=== PATIENT | male | born 1965 | race Two or more races ===

== ENCOUNTER 2019-07-16 17:29 | Emergency (ER) | payer OTHER ==
[2019-07-16 17:41] VITALS: BP 148/84; PULSE 63; RESP 16; TEMP 98.2
[2019-07-16] MEDS ORDERED: LIDOCAINE 5% PATCH TOPICAL STA (18:09)
[2019-07-16] MEDS ORDERED: ACETAMINOPHEN TAB 500 MG TAB PO STA (18:09)
--- NOTE | 2019-07-16 18:38 | ED ---
General Adult HPI - General Chief complaint: Fall Stated complaint: fall/rib pain-[facility] Time Seen by Provider: 07/16/19 17:46 Source: patient, RN notes reviewed Mode of arrival: ambulatory Limitations: no limitations - History of Present Illness Initial comments: 53-year-old male presents to the emergency department for a chief complaint of fall. Patient was walking on a sidewalk at his job when his foot slipped off the edge of the sidewalk and he fell onto his left side. Patient states he is having left-sided rib pain. States he felt fine at first however this worsen and now hurts to breathe and cough. Patient did not hit his head. Denies blood thinner use. Denies any neck pain. He denies any back pain. Patient has no other complaints at this time including shortness of breath, chest pain, abdominal pain, nausea or vomiting, headache, or visual changes. - Related Data Previous Rx's Medication Instructions Recorded Lidocaine 5% Patch [Lidoderm 5% 1 patch TOPICAL DAILY PRN 5 Days 07/16/19 Patch] #5 patch Allergies Allergy/AdvReac Type Severity Reaction Status Date / Time No Known Allergies Allergy Verified 07/16/19 17:41 Review of Systems ROS Statement: Those systems with pertinent positive or pertinent negative responses have been documented in the HPI. ROS Other: All systems not noted in ROS Statement are negative. Past Medical History Additional Past Medical History / Comment(s): arthritis. History of Any Multi-Drug Resistant Organisms: None Reported Past Surgical History: No Surgical Hx Reported Past Psychological History: No Psychological Hx Reported Smoking Status: Never smoker Past Alcohol Use History: None Reported Past Drug Use History: None Reported General Exam Limitations: no limitations General appearance: alert, in no apparent distress Head exam: Present: atraumatic, normocephalic, normal inspection Eye exam: Present: normal appearance, PERRL, EOMI. Absent: scleral icterus, conjunctival injection, periorbital swelling ENT exam: Present: normal exam, mucous membranes moist Neck exam: Present: normal inspection, full ROM. Absent: tenderness, meningismus, lymphadenopathy Respiratory exam: Present: normal lung sounds bilaterally, chest wall tenderness (patient has left sided lateral rib tenderness without contusion or step off). Absent: respiratory distress, wheezes, rales, rhonchi, stridor Cardiovascular Exam: Present: regular rate, normal rhythm, normal heart sounds. Absent: systolic murmur, diastolic murmur, rubs, gallop, clicks GI/Abdominal exam: Present: soft, normal bowel sounds. Absent: distended, tenderness (no tenderness of the abdomen, no left upper quadrant tenderness), guarding, rebound, rigid Back exam: Absent: vertebral tenderness (no thoracic or lumbar spine tenderness) Neurological exam: Present: alert Psychiatric exam: Present: normal affect, normal mood Course Vital Signs 07/16/19 17:38 Temperature 98.2 F Pulse Rate 63 Respiratory 16 Rate Blood Pressure 148/84 O2 Sat by Pulse 97 Oximetry Medical Decision Making - Medical Decision Making 53-year-old male presents to the emergency department for a chief complaint of left rib pain. Patient fell from a standing position onto a flat surface. Patient states pain is worse when he coughs or takes a deep breath. On examination patient has tenderness of the left side of the lateral ribs. He does not have any abdominal tenderness whatsoever. No spinal tenderness. I do not expect intra-abdominal pathology. X-ray was obtained Which shows no active cardiopulmonary disease. No rib fracture seen. Patient likely has occult rib fracture or rib contusion. Patient was treated for pain management but did not wish any narcotics as he is driving home. Patient will follow up with primary care in 1-2 days. I discussed strict return parameters with patient when she does agree to.I discussed this case with attending Dr. Nunez who agrees with this assessment and treatment plan. Patient was given incentive spirometer and educated on increased risk of pneumonia and to return if he developed cough or fever. Disposition Clinical Impression: Contusion of rib on left side Disposition: HOME SELF-CARE Condition: Good Instructions (If sedation given, give patient instructions): Rib Fracture (ED) Additional Instructions: Please take Motrin and tylenol alternating every 3 hours for pain as needed. If pain is severe take Tylenol 3. Do not drive or operate machinery while taking this. Used lidocaine patches as directed. [facility] . If you have any worsening symptoms including worsening pain, cough, fever return immediately to the emergency department. Otherwise follow-up with primary care in 1-2 days. Prescriptions: Lidocaine 5% Patch [Lidoderm 5% Patch] 1 patch TOPICAL DAILY PRN 5 Days #5 patch PRN Reason: Pain Is patient prescribed a controlled substance at d/c from ED?: No Referrals: Tanner Mercer MD [Primary Care Provider] - 1-2 days Time of Disposition: 19:46
--- NOTE | 2019-07-16 18:48 | XR ---
EXAMINATION TYPE: XR ribs LT w pa chest xray DATE OF EXAM: 07/16/2019 COMPARISON: NONE HISTORY: Chest pain TECHNIQUE: 5 views FINDINGS: Heart and mediastinum are normal. Lungs are clear of infiltrate. There is no sign of pleura l effusion or pneumothorax. I see no sign of a rib fracture. IMPRESSION: No active cardiopulmonary disease. No rib fracture seen.
[2019-07-16] MEDS ORDERED: KETOROLAC 30 MG/ML 1 ML VIAL IM STA ×2 (19:34→19:45)
[2019-07-16] MEDS ORDERED: ACET/COD 300 MG/30 MG STARTER PACK 6 TAB BTL PO STA (19:47)
== END 2019-07-16 20:11 | disposition home or self-care (01) ==
LOC: EC 17:29
DX: S20.212A Contusion of left front wall of thorax, initial encounter (principal); Z53.8 Procedure and treatment not carried out for other reasons; W00.0XXA Fall on same level due to ice and snow, initial encounter; Y93.01 Activity, walking, marching and hiking; Y92.480 Sidewalk as the place of occurrence of the external cause; Y92.69 Other specified industrial and construction area as the place of occurrence of the external cause; Y99.0 Civilian activity done for income or pay
CPT/HCPCS: 71101; 99284; 96372; J1885

== ENCOUNTER → 2019-07-25 | Outpatient (CLI) | payer OTHER ==
--- NOTE | 2019-07-25 12:54 | XR ---
EXAMINATION TYPE: XR ribs LT DATE OF EXAM: 07/25/2019 COMPARISON: 07/16/2019 HISTORY: Left side rib pain from fall TECHNIQUE: Two-view left RIBS FINDINGS: A subtle anterior lateral rib fracture may be present at the seventh rib. Remaining ribs appear intact. Correlate with location of patient's pain. IMPRESSION: 1. There may be a nondisplaced left anterolateral seventh rib fracture. Correlate with location of t he patient's pain.
== END | disposition home or self-care (01) ==
LOC: RADXRMAIN 11:23
PROVIDERS: ATTEND Emergency Medicine
DX: R07.81 Pleurodynia (principal); S20.20XA Contusion of thorax, unspecified, initial encounter